=== PATIENT | female | born 1950 | race Caucasian/White ===

== ENCOUNTER 2020-03-15 13:25 | Outpatient (REF) | payer MEDICARE, OTHER, SELFPAY ==
--- NOTE | 2020-03-15 | MM_ITS ---
EXAMINATION: MM DIAGNOSTIC DIGITAL BREAST TOMOSYNTHESIS, BILATERAL CLINICAL INFORMATION: Due for yearly. History right lumpectomy for invasive ductal breast cancer 04/16/2017. COMPARISON: Mammography: 03/12/2019, 03/07/2018, 04/16/2017, 03/05/2017 TECHNIQUE: Digital breast tomosynthesis is performed in both the craniocaudal and mediolateral oblique views along with computer-aided detection (CAD). Synthesized 2D images are generated from the tomosynthesis. FINDINGS: There are scattered areas of fibroglandular density (ACR BI-RADS breast composition Category b). There are post therapy changes on the right with mild scarring and surgical clips similar to prior studies. There are no recurrent calcifications or interval mass or architectural abnormality. No developing density. The bilateral breasts are similar to prior study. No suspicious changes. Results are provided to the patient at time of visit by the technologist. MM/MM tomosynthesis diagnostic BI IMPRESSION: No significant changes from prior studies. Post therapy changes right breast. ASSESSMENT: BI-RADS 2: Benign RECOMMENDATION: Annual bilateral mammography. This patient's information was entered into a reminder system with a target due date for their next mammogram.
== END 2020-03-15 13:26 | disposition home or self-care (01) ==
LOC: HO.MAMMO 13:25
PROVIDERS: PCP Internal Medicine; Visit Provider Surgery
DX: Z85.3 Personal history of malignant neoplasm of breast (principal); M85.89 Other specified disorders of bone density and structure, multiple sites
CPT/HCPCS: 77062; 77066

== ENCOUNTER → 2020-03-23 09:05 | Outpatient (BNVA) | payer MEDICARE, OTHER, SELFPAY | PROVIDERS: PCP Internal Medicine; Visit Provider Surgery | DX: Z85.3 Personal history of malignant neoplasm of breast (principal) | CPT/HCPCS: 99212 ==

== ENCOUNTER → 2020-04-16 09:30 | Outpatient (BNV) | payer MEDICARE, OTHER, SELFPAY | PROVIDERS: PCP Internal Medicine; Visit Provider Internal Medicine Medical Oncology | DX: Z85.3 Personal history of malignant neoplasm of breast (principal); Z13.820 Encounter for screening for osteoporosis | CPT/HCPCS: 99213; 99214; 99443 ==

== ENCOUNTER 2021-03-19 07:32 | Outpatient (REF) | payer MEDICARE, OTHER, SELFPAY ==
--- NOTE | ~2021-03-19 | MM_ITS ---
EXAMINATION: MM SCREENING DIGITAL BREAST TOMOSYNTHESIS, BILATERAL CLINICAL INFORMATION: Right lumpectomy for invasive ductal cancer 04/16/2017. Due for yearly. COMPARISON: Mammography: 03/15/2020, 03/12/2019, 03/07/2018, 03/05/2017 TECHNIQUE: Digital breast tomosynthesis is performed in both the craniocaudal and mediolateral oblique views along with computer-aided detection (CAD). Synthesized 2D images are generated from the tomosynthesis. FINDINGS: There are scattered areas of fibroglandular density (ACR BI-RADS breast composition Category b). Right breast post therapy changes are again seen with mild reduced breast size, scarring, and surgical clips. Neither breast shows interval mass or architectural abnormality or abnormal calcifications. No significant changes. MM/MM tomosynthesis screening BI IMPRESSION: No mammographic evidence of malignancy. Post therapy changes right breast, stable. ASSESSMENT: BI-RADS 2: Benign RECOMMENDATION: Routine annual mammography screening. This patient's information was entered into a reminder system with a target due date for their next mammogram.
== END 2021-03-19 07:33 | disposition home or self-care (01) ==
LOC: HO.MAMMO 07:32
PROVIDERS: PCP Internal Medicine; Visit Provider Internal Medicine
DX: Z12.31 Encounter for screening mammogram for malignant neoplasm of breast (principal)
CPT/HCPCS: 77063; 77067

== ENCOUNTER 2022-04-13 08:32 | Outpatient (REF) | payer MEDICARE, OTHER, SELFPAY ==
--- NOTE | ~2022-04-13 | MM_ITS ---
EXAMINATION: MM SCREENING DIGITAL BREAST TOMOSYNTHESIS, BILATERAL CLINICAL INFORMATION: Screening. Asymptomatic. Status post right breast lumpectomy 2016 COMPARISON: Mammography: March 19, 2021 and studies dating back to February 23, 2016 TECHNIQUE: Digital breast tomosynthesis is performed in both the craniocaudal and mediolateral oblique views along with computer-aided detection (CAD). Synthesized 2D images are generated from the tomosynthesis. FINDINGS: There are scattered areas of fibroglandular density (ACR BI-RADS breast composition Category b). There are no new significant masses, abnormal calcifications, or other abnormalities. Postsurgical change again seen within the upper outer aspect of the right breast. MM/MM tomosynthesis screening BI IMPRESSION: No significant change from ASSESSMENT: BI-RADS 2: Benign RECOMMENDATION: Routine annual mammography screening. This patient's information was entered into a reminder system with a target due date for their next mammogram.
== END 2022-04-13 08:33 | disposition home or self-care (01) ==
LOC: HO.MAMMO 08:32
PROVIDERS: PCP Internal Medicine; Visit Provider Internal Medicine
DX: Z12.31 Encounter for screening mammogram for malignant neoplasm of breast (principal)
CPT/HCPCS: 77063; 77067

== ENCOUNTER → 2022-09-22 10:43 | Outpatient (BNVA) | payer MEDICARE, OTHER, SELFPAY | PROVIDERS: Referring Provider Internal Medicine Medical Oncology; Visit Provider Surgery | DX: Z85.3 Personal history of malignant neoplasm of breast (principal) | CPT/HCPCS: 99202 ==

== ENCOUNTER 2022-10-03 10:51 | Outpatient (REF) | payer MEDICARE, OTHER, SELFPAY | END 2022-10-03 10:52 | disposition home or self-care (01) | LOC: HO.MDS 10:51 | PROVIDERS: Visit Provider Internal Medicine Medical Oncology | DX: D50.9 Iron deficiency anemia, unspecified (principal) | CPT/HCPCS: 96365; J1756 ==

== ENCOUNTER 2022-10-13 09:15 | Outpatient (REF) | payer MEDICARE, OTHER, SELFPAY | END 2022-10-13 09:16 | disposition home or self-care (01) | LOC: HO.MDS 09:15 | PROVIDERS: Visit Provider Internal Medicine Medical Oncology | DX: D50.9 Iron deficiency anemia, unspecified (principal) | CPT/HCPCS: 96365; J1756 ==

== ENCOUNTER 2022-10-19 10:14 | Outpatient (REF) | payer MEDICARE, OTHER, SELFPAY | END 2022-10-19 10:15 | disposition home or self-care (01) | LOC: HO.MDS 10:14 | PROVIDERS: Visit Provider Internal Medicine Medical Oncology | DX: D50.9 Iron deficiency anemia, unspecified (principal) | CPT/HCPCS: 96365; J1756 ==

== ENCOUNTER 2022-10-27 08:42 | Outpatient (REF) | payer MEDICARE, OTHER, SELFPAY ==
[2022-10-27 09:02] LABS: MANUAL DIFF FLAG NO
[2022-10-27 09:06] LABS: Basophils Percent Auto 0.3 % (0-2); Eosinophils Absolute Auto 0.1 X10*3/uL (0.0-0.4); Eosinophils Percent Auto 0.9 % (0-4); Hematocrit 34.9 % (37.0-47.0); Hemoglobin 10.3 g/dl (12.0-16.0); Imm Gran Abs Auto 0.05 X10*3/uL (0.00-0.03); Imm Gran Pct Auto 0.5 % (0.0-0.4); Lymphocytes Absolute Auto 2.5 X10*3/uL (1.2-4.9); Lymphocytes Percent Auto 22.8 % (20-40); Mean Corpuscular HGB Conc 29.5 g/dl (31.0-35.0); Mean Corpuscular Hemoglobin 21.9 pg (27.0-33.0); Mean Corpuscular Volume 74.1 fL (80.0-98.0); Mean Platelet Volume 10.8 fL (9.4-12.3); Monocytes Absolute Auto 0.8 X10*3/uL (0.1-1.2); Monocytes Percent Auto 7.2 % (2-11); Neutrophils Absolute Auto 7.6 x10*3/uL (2.0-8.3); Neutrophils Percent Auto 68.3 % (45-73); Platelet Count 244 X10*3/uL (160-400); Red Blood Count 4.71 X10*6/uL (4.20-5.50); Red Cell Distribution Width 25.3 % (11.0-16.0); White Blood Count 11.1 X10*3/uL (4.8-10.8)
[2022-10-27 09:39] LABS: Ferritin 106 ng/mL (10-250)
== END 2022-10-27 08:43 | disposition home or self-care (01) ==
LOC: HO.MDS 08:42
PROVIDERS: Visit Provider Internal Medicine Medical Oncology
DX: D50.9 Iron deficiency anemia, unspecified (principal)
CPT/HCPCS: 36415; 82728; 85025; 96365; J1756

== ENCOUNTER 2022-11-03 10:28 | Outpatient (REF) | payer MEDICARE, OTHER, SELFPAY | END 2022-11-03 10:29 | disposition home or self-care (01) | LOC: HO.MDS 10:28 | PROVIDERS: Visit Provider Internal Medicine Medical Oncology | DX: D50.9 Iron deficiency anemia, unspecified (principal) | CPT/HCPCS: 96365; J1756 ==

== ENCOUNTER 2022-11-10 09:26 | Outpatient (REF) | payer MEDICARE, OTHER, SELFPAY | END 2022-11-10 09:27 | disposition home or self-care (01) | LOC: HO.MDS 09:26 | PROVIDERS: Visit Provider Internal Medicine Medical Oncology | DX: D50.9 Iron deficiency anemia, unspecified (principal) | CPT/HCPCS: 96365; J1756 ==

== ENCOUNTER 2022-11-17 10:25 | Outpatient (REF) | payer MEDICARE, OTHER, SELFPAY | END 2022-11-17 10:26 | disposition home or self-care (01) | LOC: HO.MDS 10:25 | PROVIDERS: Visit Provider Internal Medicine Medical Oncology | DX: D50.8 Other iron deficiency anemias (principal) | CPT/HCPCS: 96365; J1756 ==

== ENCOUNTER 2022-11-24 10:33 | Outpatient (REF) | payer MEDICARE, OTHER, SELFPAY ==
[2022-11-24 11:14] LABS: MANUAL DIFF FLAG NO
[2022-11-24 11:16] LABS: Basophils Absolute Auto 0.1 X10*3/uL (0.0-0.2); Basophils Percent Auto 0.4 % (0-2); Eosinophils Absolute Auto 0.1 X10*3/uL (0.0-0.4); Eosinophils Percent Auto 0.9 % (0-4); Hematocrit 38.9 % (37.0-47.0); Hemoglobin 12.2 g/dl (12.0-16.0); Imm Gran Abs Auto 0.09 X10*3/uL (0.00-0.03); Imm Gran Pct Auto 0.6 % (0.0-0.4); Lymphocytes Absolute Auto 3.2 X10*3/uL (1.2-4.9); Lymphocytes Percent Auto 22.8 % (20-40); Mean Corpuscular HGB Conc 31.4 g/dl (31.0-35.0); Mean Corpuscular Hemoglobin 25.2 pg (27.0-33.0); Mean Corpuscular Volume 80.2 fL (80.0-98.0); Mean Platelet Volume 10.6 fL (9.4-12.3); Monocytes Absolute Auto 0.9 X10*3/uL (0.1-1.2); Monocytes Percent Auto 6.7 % (2-11); Neutrophils Absolute Auto 9.6 x10*3/uL (2.0-8.3); Neutrophils Percent Auto 68.6 % (45-73); Platelet Count 217 X10*3/uL (160-400); Red Blood Count 4.85 X10*6/uL (4.20-5.50); Red Cell Distribution Width 25.3 % (11.0-16.0)
[2022-11-24 11:49] LABS: Ferritin 215 ng/mL (10-250)
== END 2022-11-24 10:34 | disposition home or self-care (01) ==
LOC: HO.MDS 10:33
PROVIDERS: Visit Provider Internal Medicine Medical Oncology
DX: D50.8 Other iron deficiency anemias (principal)
CPT/HCPCS: 36415; 82728; 85025; 96365; J1756

== ENCOUNTER 2023-04-16 08:44 | Outpatient (REF) | payer MEDICARE, OTHER, SELFPAY ==
--- NOTE | ~2023-04-16 | MM_ITS ---
EXAMINATION: MM SCREENING DIGITAL BREAST TOMOSYNTHESIS, BILATERAL CLINICAL INFORMATION: Screening. Asymptomatic. The patient is status post breast cancer surgery from 2017. COMPARISON: Mammography: This study is compared with prior exams dating back to 2019. TECHNIQUE: Digital breast tomosynthesis is performed in both the craniocaudal and mediolateral oblique views along with computer-aided detection (CAD). Synthesized 2D images are generated from the tomosynthesis. FINDINGS: There are scattered areas of fibroglandular density (ACR BI-RADS breast composition Category b). There are no significant masses, abnormal calcifications, or other abnormalities. There are postsurgical changes in the upper outer quadrant and axillary tail of the right breast. MM/MM tomosynthesis screening BI IMPRESSION: No mammographic evidence of malignancy. ASSESSMENT: BI-RADS BI-RADS 2 - Benign Findings RECOMMENDATION: Routine annual mammography screening. 1 year F/U This examination should not preclude the clinical evaluation of a suspicious palpable abnormality. This patient's information was entered into a reminder system with a target due date for their next mammogram.
== END 2023-04-16 08:45 | disposition home or self-care (01) ==
LOC: HO.MAMMO 08:44
PROVIDERS: PCP Nurse Practitioner Family; Visit Provider Internal Medicine
DX: Z12.31 Encounter for screening mammogram for malignant neoplasm of breast (principal)
CPT/HCPCS: 77063; 77067

== ENCOUNTER → 2023-04-16 09:00 | Outpatient (BNV) | payer MEDICARE, OTHER, SELFPAY | PROVIDERS: PCP Nurse Practitioner Family; Visit Provider Radiology Diagnostic Radiology | DX: Z12.31 Encounter for screening mammogram for malignant neoplasm of breast (principal) | CPT/HCPCS: 77063; 77067 ==

== ENCOUNTER 2023-05-10 08:41 | Outpatient (AMB) | payer MEDICARE, OTHER, SELFPAY ==
--- NOTE | 2023-05-10 08:57 | A.OFFVIS_ITS ---
Intake Vital Signs 05/10/23 09:02 Height 5 ft 1 in Weight 177 lb 4 oz BMI 33.5 BP 150/78 H Blood Pressure Location Lt brachial Position Sitting Pulse 70 Intake Visit Reasons: Follow up after mammo in Mar, hx RT CA Intake Note: Patient is seen in office for follow up visit breast exam, following hx of right CA. 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 Accompanied by: Self / Same As Patient Allergies No Known Allergies [No Known Allergies*] Allergy (Unverified 05/10/23 08:58) Medication List - Last Reconciled 05/10/23 by Murtaza Zelaya MD atenolol 100 mg PO DAILY blood sugar diagnostic As directed diltiazem HCl 300 mg PO DAILY esomeprazole magnesium 20 mg PO DAILY insulin glargine 25 units subcut BID lancets As directed lisinopril 40 mg PO DAILY 90 days metformin 1,000 mg PO BID pen needle, diabetic As directed simvastatin 10 mg PO BEDTIME sitagliptin phosphate (Januvia) 50 mg PO DAILY HPI HPI Comments History of Present Illness Details 72-year-old female patient, former patie nt of Dr. Hdz and Dr. Miller returning for a routine breast examination. She has a prior history of breast carcinoma diagnosed on 04/15/2017. She underwent a right breast lumpectomy with needle localization and right axillary sentinel node biopsy. She was found to have a 1.5 mm invasive ductal carcinoma with associated DCIS, ER/MO positive, HER2 Bao negative. She was evaluated by Medical Oncology (Dr. Celis) and started on exemestane for 5 years. She has now completed this treatment. She was evaluated by radiation oncology and no radiation recommended as long as she was treated with endocrine therapy. She also reports a remote history of a left breast biopsy performed in [place] for palpable mass when she was a teenager. This apparently was a lipoma. She feels well and denies any ongoing breast symptoms. Her most recent mammogram of 04/16/2023 reveals no mammographic evidence of malignancy (BI-RADS 2). Routine screening is recommended in 1 year. [facility] Medical History Diabetes mellitus GERD (gastroesophageal reflux disease) Hyperlipidemia Hypertension History of right breast cancer Surgical History History of hysterectomy History of tonsillectomy History of appendectomy History of lumpectomy of right breast Family History Mother Ovarian cancer Sister Breast cancer Social History Household Members: Spouse Alcohol intake: never Patient Tobacco Use Status: Former Tobacco user Quit Date: 1991 service: No Current occupational status: employed Review of Systems Const All systems reviewed & are unremarkable except as noted in HPI and below Physical Exam Const General: no acute distress and well developed Nutritional Appearance: well nourished Orientation/consciousness: patient oriented x3 Limitations: no limitations HEENT Head: Yes normocephalic and Yes atraumatic Neck Neck: Yes normal visual inspection and Yes no lymphadenopathy Chest Other: Left breast: No skin change, no nipple retraction, no nipple discharge, no palpable mass, no enlarged lymph nodes, well-healed incision in the upper outer quadrant from prior lipoma excision. Right breast: No skin change, no nipple retraction, no nipple discharge, no palpable mass, no enlarged lymph nodes, well-healed incision in the upper outer quadrant with some slight volume loss GI Inspection: Yes normal to inspection Skin General skin exam: no rashes or lesions noted Neuro General: patient oriented x3 Extrem General: Yes no clubbing, cyanosis or edema Assessment & Plan Assessment & Plan (1) Breast cancer: Code(s): C50.919 - Malignant neoplasm of unspecified site of unspecified female breast Qualifiers: Breast location: upper outer quadrant of breast Estrogen receptor status: positive Laterality: right Patient sex: female Qualified Code(s): C50.411 - Malignant neoplasm of upper-outer quadrant of right female breast; Z17.0 - Estrogen receptor positive status [ER+] Plan 72-year-old female patient former patient of Dr. Hdz and Angela returning for breast cancer follow-up. She is now 6 years post lumpectomy and sentinel node biopsy for a right breast cancer in 2017. She feels well and denies any ongoing breast symptoms. Her most recent mammogram dated 04/06 and 2022 revealed no mammographic evidence of malignancy. (BI-RADS 2). Annual screening is recommended. Examination today revealed no suspicious findings in either breast with a well-healed incision bilaterally. I recommended follow-up examination in 1 year. She is welcome to call sooner for any new concerns. Coding Level of Care Code Est Pt Level 3 (79663) Diagnoses Malignant neoplasm of upper-outer quadrant of right breast in female, estrogen receptor positive C50.411; Z17.0 Breast location: upper outer quadrant of breast Estrogen receptor status: positive Laterality: right Patient sex: female
[2023-05-10 09:02] VITALS: BP 150/78; PULSE 70; BMI 33.5
== END 2023-05-10 09:11 | disposition home or self-care (01) ==
PROVIDERS: Visit Provider Surgery
DX: C50.411 Malignant neoplasm of upper-outer quadrant of right female breast (principal); Z17.0 Estrogen receptor positive status [ER+]
CPT/HCPCS: 99213

== ENCOUNTER → 2023-05-10 08:41 | Outpatient (BNVA) | payer MEDICARE, OTHER, SELFPAY | PROVIDERS: Visit Provider Surgery | DX: C50.411 Malignant neoplasm of upper-outer quadrant of right female breast (principal); Z17.0 Estrogen receptor positive status [ER+] | CPT/HCPCS: 99212 ==

== ENCOUNTER 2023-09-18 07:46 | Outpatient (REF) | payer MEDICARE, OTHER, SELFPAY ==
--- NOTE | ~2023-09-18 | CT_ITS ---
EXAMINATION: CT CHEST WITH CONTRAST CLINICAL INFORMATION: Pulmonary nodules. COMPARISON: None available. TECHNIQUE: Multidetector volumetric CT imaging of the chest was obtained after the administration of 65 mL of Omnipaque 350 intravenous contrast without immediate adverse reactions. Axial MIP volume rendering provided. Sagittal and coronal reformatted images were obtained. This CT examination was performed using dose optimization techniques as appropriate, variously including the following: *Automated exposure control *Adjustment of mA and/or kV according to patient size (this includes techniques or standardized protocols for targeted exams where dose is matched to indication/reason for exam; i.e. extremities or head) *Use of iterative reconstruction technique DLP: 129 mGy-cm FINDINGS: LUNGS: 4 mm nodule left lower lobe on image 109 of series 6. 5 mm nodule right middle lobe on image 96 of series 6. No focal consolidation. Central airways are patent. MEDIASTINUM: Imaged thyroid gland is unremarkable. No mediastinal or hilar lymphadenopathy. Great vessels are of normal caliber. Heart size is normal. No pericardial effusion. Moderate coronary artery calcifications. PLEURA: No pleural effusion. AXILLA: No axillary lymphadenopathy. Surgical clips in the right axilla. Status post right lumpectomy. UPPER ABDOMEN: Hepatic steatosis. OSSEOUS STRUCTURES: No destructive bone lesions. CT/CT chest w IV con IMPRESSION: Bilateral pulmonary nodules measuring up to 5 mm. No prior studies available for comparison. Follow-up chest CT in 12 months is advised.
[2023-09-18] MEDS: iohexoL 350 MG/ML 100 ML INFUS..BTL IV (08:47)
[2023-09-19 08:03] LABS: Creatinine POC 0.9 mg/dL (0.5-1.4); GFR POC > 60
== END 2023-09-18 07:47 | disposition home or self-care (01) ==
LOC: HO.CT 07:46
PROVIDERS: PCP Nurse Practitioner Family; Visit Provider Internal Medicine Medical Oncology
DX: R91.8 Other nonspecific abnormal finding of lung field (principal)
CPT/HCPCS: 71260; 82565; Q9967

== ENCOUNTER 2024-02-13 07:54 | Outpatient (REF) | payer MEDICARE, OTHER, SELFPAY ==
--- NOTE | ~2024-02-13 | MM_ITS ---
EXAMINATION: BONE DENSITOMETRY CLINICAL INDICATION: Osteopenia. COMPARISON: Previous BD dated 03/31/2020 and baseline BD dated 05/23/2007. TECHNIQUE: Using a [employer] DXA System (software version: 13.1) manufactured by [employer] 2000, dual-energy x-ray absorptiometry was performed of the lumbar spine and left hip. The images are of good technical quality. Summary results are attached. FINDINGS: LEFT FEMUR, NECK: Current: BMD 0.798 g/cm2, Z-score -0.2, T-score -1.7, osteopenia. Prior: BMD 0.816 g/cm2. Baseline: BMD 0.889 g/cm2. LEFT FEMUR, TOTAL: Current: BMD 0.879 g/cm2, Z-score 0.2, T-score -1.0, normal, 8.2% decrease from previous, 18.4% increase from baseline (<5% change is not significant). Prior: BMD 0.958 g/cm2. Baseline: BMD 1.077 g/cm2. AP SPINE L1-L4: Current: BMD 1.105 g/cm2, Z-score 0.5, T-score -0.6, normal, 0.9% increase from previous, 9.1% decrease from baseline (<5% change is not significant). Prior: BMD 1.095 g/cm2. Baseline: BMD 1.215 g/cm2. IDENTIFIED RISK FACTORS: Height loss, menopause, bilateral oophorectomy, hysterectomy. HISTORY OF FRACTURE: None listed. MEDICATIONS: Multivitamin. MM/XR DEXA axial skeleton IMPRESSION: 1. DIAGNOSIS: Osteopenia based on the lowest T-score value of -1.7 in the femoral neck applying World Health Organization criteria. 2. 10-YEAR FRACTURE RISK PREDICTION, FRAX: Major osteoporotic fracture (clinical spine, forearm, hip or shoulder) 10.8%. Hip fracture 2.1%. 3. Treatment Recommendations: NOF guidelines recommend consideration for treatment in postmenopausal women and men age 50 and older presenting with the following: -A hip or vertebral (clinical or morphometric) fracture. -T-score less than or equal to -2.5 at the femoral neck or spine after appropriate evaluation to exclude secondary causes. -Low bone mass at the hip or spine and a 10-year fracture probability by FRAX of greater than or equal to 3% for hip fracture or greater than or equal to 20% for major osteoporotic fracture based on the [place] adapted WHO algorithm. 4. Other Recommendations: All treatment decisions require clinical judgment and consideration of individual patient factors, including patient preferences, comorbidities, previous drug use, risk factors not captured in the FRAX model (e.g. frailty, falls, vitamin D deficiency, increased bone turnover, interval significant decline in bone density) and possible under or overestimation of fracture risk by FRAX. Additional medical evaluation for secondary cause of low bone mineral density may be appropriate. FUTURE SCAN RECOMMENDATION: People with diagnosed cases of osteoporosis or at high risk for fracture should have regular bone mineral density tests. For patients eligible for Medicare, routine testing is allowed once every 2 years. The testing frequency can be increased to one year for patients who have rapidly progressing disease, those who are receiving or discontinuing medical therapy to restore bone mass, or have additional risk factors. Electronically signed by: Maicol Mina MD 02/13/2024 12:36 PM EDT
== END 2024-02-13 07:55 | disposition home or self-care (01) ==
LOC: HO.MAMMO 07:54
PROVIDERS: PCP Nurse Practitioner Family; Visit Provider Internal Medicine Medical Oncology
DX: Z13.820 Encounter for screening for osteoporosis (principal); M85.80 Other specified disorders of bone density and structure, unspecified site
CPT/HCPCS: 77080

== ENCOUNTER 2024-04-17 08:40 | Outpatient (REF) | payer MEDICARE, OTHER, SELFPAY | END 2024-04-17 08:41 | disposition home or self-care (01) | LOC: HO.MAMMO 08:40 | PROVIDERS: PCP Nurse Practitioner Family; Visit Provider Nurse Practitioner Family | DX: Z12.31 Encounter for screening mammogram for malignant neoplasm of breast (principal) | CPT/HCPCS: 77063; 77067 ==

== ENCOUNTER → 2024-04-17 09:15 | Outpatient (BNV) | payer MEDICARE, OTHER, SELFPAY | PROVIDERS: PCP Nurse Practitioner Family; Visit Provider Internal Medicine | DX: Z12.31 Encounter for screening mammogram for malignant neoplasm of breast (principal) | CPT/HCPCS: 77063; 77067 ==

== ENCOUNTER 2024-05-13 08:38 | Outpatient (AMB) | payer MEDICARE, OTHER, SELFPAY ==
[2024-05-13 08:49] VITALS: BMI 33.5
--- NOTE | 2024-05-13 08:49 | MHC.OFFVIS ---
Vital Signs 05/13/24 08:49 Height 5 ft 1 in Weight 177 lb 6 oz BMI 33.5 Intake Visit Reasons: 1 year breast exam Intake Note: Patient is seen in office for yearly breast exam. Pt c/o: reports no breast complaints. 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 Accompanied by: Self / Same As Patient Allergies No Known Allergies [No Known Allergies*] Allergy (Unverified 05/13/24 08:55) Medication List - Last Reconciled 05/13/24 by Murtaza Zelaya MD atenolol 100 mg PO DAILY blood sugar diagnostic As directed diltiazem HCl CD 300 mg PO DAILY duloxetine 20 mg PO BID esomeprazole magnesium 20 mg PO DAILY insulin glargine 25 units subcut BID lancets As directed lisinopril 40 mg PO DAILY 90 days metformin 1,000 mg PO BID pen needle, diabetic As directed simvastatin 10 mg PO BEDTIME sitagliptin phosphate (Januvia) 50 mg PO DAILY HPI Comments Details: 73-year-old female patient, former patient of Dr. Hdz and Dr. Miller returning for a routine breast examination. She has a prior history of breast carcinoma diagnosed on 04/15/2017. She underwent a right breast lumpectomy with needle localization and right axillary sentinel node biopsy. She was found to have a 1.5 mm invasive ductal carcinoma with associated DCIS, ER/MO positive, HER2 Bao negative. She was evaluated by Medical Oncology (Dr. Celis) and started on exemestane for 5 years. She has now completed this treatment. She was evaluated by radiation oncology and no radiation recommended as long as she was treated with endocrine therapy. She also reports a remote history of a left breast biopsy performed in [place] for palpable mass when she was a teenager. This apparently was a lipoma. She feels well and denies any ongoing breast symptoms. Her most recent mammogram of 04/17/2024 reveals no mammographic evidence of malignancy (BI-RADS 2). Routine screening is recommended in 1 year. [facility] Medical History Diabetes mellitus GERD (gastroesophageal reflux disease) Hyperlipidemia Hypertension History of right breast cancer Surgical History History of hysterectomy History of tonsillectomy History of appendectomy History of lumpectomy of right breast Family History Mother Ovarian cancer Sister Breast cancer Social History Household Members: Spouse Alcohol intake: never Patient Tobacco Use Status: Former Tobacco user service: No Current occupational status: employed Review of Systems Const All systems reviewed & are unremarkable except as noted in HPI and below Physical Exam Vital Signs: BMI result Body Mass Index 33.5 Const General: no acute distress and well developed Nutritional Appearance: well nourished Orientation/consciousness: patient oriented x3 Limitations: no limitations HEENT Head: Yes normocephalic and Yes atraumatic Neck Neck: Yes normal visual inspection and Yes no lymphadenopathy Chest Other: Left breast: No skin change, no nipple retraction, no nipple discharge, no palpable mass, no enlarged lymph nodes, well-healed incision in the upper outer quadrant from prior lipoma excision. Right breast: No skin change, no nipple retraction, no nipple discharge, no palpable mass, no enlarged lymph nodes, well-healed incision in the upper outer quadrant with some slight volume loss Chest/axillae images: 1. Incision upper outer quadrant right breast GI Inspection: Yes normal to inspection Skin General skin exam: no rashes or lesions noted Neuro Other: Mobility Assessment: 1. 3 meter assessment time (seconds) 5 2. Gait observations: Normal balance and gait General: patient oriented x3 Extrem General: Yes no clubbing, cyanosis or edema Assessment & Plan Assessment & Plan (1) Breast cancer: Code(s): C50.919 - Malignant neoplasm of unspecified site of unspecified female breast Category: Medical Qualifiers: Breast location: upper outer quadrant of breast Estrogen receptor status: positive Patient sex: female Laterality: right Qualified Code(s): C50.411 - Malignant neoplasm of upper-outer quadrant of right female breast; Z17.0 - Estrogen receptor positive status [ER+] Plan 73-year-old female patient former patient of Dr. Hdz and Angela returning for breast cancer follow-up. She is now 7 years post lumpectomy and sentinel node biopsy for a right breast cancer in 2017. She feels well and denies any ongoing breast symptoms. Her most recent mammogram dated 04/17/2024 revealed no mammographic evidence of malignancy. (BI-RADS 2). Annual screening is recommended. Examination today revealed no suspicious findings in either breast with a well-healed incision bilaterally. I recommended follow-up examination in 1 year after her next mammogram. She is welcome to call sooner for any new concerns. Coding Level of Care Code Est Pt Level 3 (45951) Diagnoses Malignant neoplasm of upper-outer quadrant of right breast in female, estrogen receptor positive C50.411; Z17.0 Breast location: upper outer quadrant of breast Estrogen receptor status: positive Patient sex: female Laterality: right
== END 2024-05-13 09:06 | disposition home or self-care (01) ==
PROVIDERS: Visit Provider Surgery
DX: C50.411 Malignant neoplasm of upper-outer quadrant of right female breast (principal); Z17.0 Estrogen receptor positive status [ER+]
CPT/HCPCS: 99213

== ENCOUNTER → 2024-05-13 08:38 | Outpatient (BNVA) | payer MEDICARE, OTHER, SELFPAY | PROVIDERS: Visit Provider Surgery | DX: C50.411 Malignant neoplasm of upper-outer quadrant of right female breast (principal); Z17.0 Estrogen receptor positive status [ER+] | CPT/HCPCS: 99212 ==

== ENCOUNTER 2024-07-15 14:17 | Outpatient (REF) | payer MEDICARE, OTHER, SELFPAY ==
--- NOTE | ~2024-07-15 | US_ITS ---
EXAMINATION: US THYROID CLINICAL INFORMATION: Pain.. COMPARISON: None available. TECHNIQUE: Linear transducer perkins-scale and color Doppler examination with attention to the upper neck. FINDINGS: No solid or cystic lesion. US/US soft tiss head and/or neck IMPRESSION: Negative limited ultrasound .. Electronically signed by: Robert Quevedo MD 07/15/2024 03:11 PM EDT
== END 2024-07-15 14:18 | disposition home or self-care (01) ==
LOC: HO.US 14:17
PROVIDERS: Visit Provider Internal Medicine Medical Oncology
DX: M54.2 Cervicalgia (principal)
CPT/HCPCS: 76536

== ENCOUNTER → 2024-07-15 14:19 | Outpatient (BNV) | payer MEDICARE, OTHER, SELFPAY | PROVIDERS: Visit Provider Radiology Diagnostic Radiology | DX: R51.9 Headache, unspecified (principal) | CPT/HCPCS: 76536 ==

== ENCOUNTER 2024-07-24 08:38 | Outpatient (REF) | payer MEDICARE, OTHER, SELFPAY ==
--- NOTE | ~2024-07-24 | CT_ITS ---
CLINICAL HISTORY: Pulmonary nodules CT chest without contrast Comparison: 09/18/2023 08:24 AM EDT: CTSR: CT CHEST W IV CON Findings: The heart is normal size. The visualized thyroid and mediastinum are unremarkable. There is a 0.3 cm left lower lobe pulmonary lesion, unchanged, probably benign. No new consolidation or effusion. The visualized upper abdomen is unremarkable. No acute fractures. IMPRESSION: 1. Stable left lower lobe pulmonary lesion This document has been electronically signed by: Irvin Cantu MD on 07/24/2024 18:23:25
== END 2024-07-24 08:39 | disposition home or self-care (01) ==
LOC: HO.CT 08:38
PROVIDERS: Visit Provider Internal Medicine Medical Oncology
DX: R91.8 Other nonspecific abnormal finding of lung field (principal)
CPT/HCPCS: 71250

== ENCOUNTER → 2024-07-24 08:39 | Outpatient (BNV) | payer MEDICARE, OTHER, SELFPAY | PROVIDERS: Visit Provider Specialist | DX: R91.8 Other nonspecific abnormal finding of lung field (principal) | CPT/HCPCS: 71250 ==